=== PATIENT | female | born 1965 | race Caucasian/White ===

== ENCOUNTER 2016-11-07 18:46 | Emergency (ER) | payer MEDICAID | END 2016-11-07 21:18 | disposition home or self-care (01) | LOC: D.ER 18:46 | DX: G43.909 Migraine, unspecified, not intractable, without status migrainosus (principal); H53.149 Visual discomfort, unspecified; R11.2 Nausea with vomiting, unspecified ==

== ENCOUNTER 2017-02-28 22:12 | Emergency (ER) | payer MEDICAID | END 2017-02-28 23:20 | disposition home or self-care (01) | LOC: D.ER 22:12 | DX: R06.00 Dyspnea, unspecified (principal) ==